=== PATIENT | female | born 1965 | race Caucasian/White ===

== ENCOUNTER 2022-04-09 20:58 | Observation (INO) ==
[2022-04-09] MEDS ORDERED: Lactated Ringers 1000 ml BAG 1,000 ML IV ONE ×2 (21:29→23:36)
[2022-04-09 22:32] LABS: ABS Lymphocytes 1.2 10^3/ul (1.0-4.8); ABS Monocytes 0.7 10^3/ul (0-0.8); ABS Neutrophils 9.4 10^3/ul (1.5-7.7); Eosinophil % 0.3 %; Hematocrit 39 % (35-47); Lymphocyte % 10.4 %; Mean Corpuscular HGB Conc 33 g/dL (31-36); Mean Corpuscular Hemoglobin 30 pg (27-31); Mean Corpuscular Volume 90 fL (80-97); Mean Platelet Volume 8.1 fL (7.4-10.4); Platelet Count 218 10^3/uL (150-450); Red Blood Count 4.35 10^6 /uL (3.70-4.87); Red Cell Distribution Width 12 % (10-15); White Blood Count 11.3 10^3/uL (3.5-10.8)
[2022-04-09 22:37] LABS: INR 1.14 (0.88-1.18)
[2022-04-09 22:44] LABS: High Sens Troponin Baseline < 3 pg/mL (<15)
[2022-04-09 22:58] LABS: ALT 13 U/L (7-52); Albumin 4.5 g/dL (3.2-5.2); Albumin/Globulin Ratio 1.8 (1-3); Alkaline Phosphatase 60 U/L (35-149); Blood Urea Nitrogen 17 mg/dL (6-24); CO2 Carbon Dioxide 24 mmol/L (22-32); Calcium 9.2 mg/dL (8.6-10.3); Chloride 102 mmol/L (101-111); Globulin 2.5 g/dL (2-4); Glucose 150 mg/dL (70-100); Sodium 136 mmol/L (135-145); eGFR CKD-EPI 101.9 (>60)
[2022-04-09 23:03] LABS: Anion Gap 10 mmol/L (2-11)
[2022-04-09 23:56] LABS: High Sensitivity Troponin 1 Hr < 3 pg/mL (<15)
[2022-04-10] MEDS: KCL 20 MEQ/100 ML IVPREMIX 20 MEQ/100 ML BAG IV SCH ×3 (02:34→09:21)
[2022-04-10] MEDS: Potassium Chlor 20 meq TAB.ER PO SCH ×2 (05:36→06:54)
[2022-04-10 05:55] LABS: ABS Lymphocytes 1.5 10^3/ul (1.0-4.8); ABS Monocytes 0.4 10^3/ul (0-0.8); ABS Neutrophils 3.6 10^3/ul (1.5-7.7); Eosinophil % 0.7 %; Hematocrit 36 % (35-47); Lymphocyte % 27.3 %; Mean Corpuscular HGB Conc 33 g/dL (31-36); Mean Corpuscular Hemoglobin 30 pg (27-31); Mean Corpuscular Volume 91 fL (80-97); Mean Platelet Volume 8.6 fL (7.4-10.4); Platelet Count 220 10^3/uL (150-450); Red Blood Count 3.97 10^6 /uL (3.70-4.87); Red Cell Distribution Width 12 % (10-15); White Blood Count 5.6 10^3/uL (3.5-10.8)
[2022-04-10 06:40] LABS: Blood Urea Nitrogen 11 mg/dL (6-24); CO2 Carbon Dioxide 26 mmol/L (22-32); Calcium 8.4 mg/dL (8.6-10.3); Chloride 108 mmol/L (101-111); Glucose 86 mg/dL (70-100); Sodium 143 mmol/L (135-145); eGFR CKD-EPI 108.3 (>60)
[2022-04-10 06:49] LABS: Anion Gap 9 mmol/L (2-11)
[2022-04-10 06:54] LABS: TSH Ultra Thyroid Stim Horm 1.06 mcIU/mL (0.34-5.60)
[2022-04-10 06:56] LABS: Free T4 0.97 ng/dL (0.61-1.12)
[2022-04-10 09:01] LABS: Magnesium 1.8 mg/dL (1.9-2.7); Potassium Redraw 4.6 mmol/L (3.5-5.0)
[2022-04-10] MEDS ORDERED: Magnesium Sulfate 2 gm BAG 2 GM/50 ML BAG IVPB ONE (09:10)
[2022-04-10 21:12] LABS: High Sensitivity Troponin 1 Hr < 3 pg/mL (<15)
[2022-04-10 22:51] LABS: High Sensitivity Troponin 3 Hr < 3 pg/mL (<15)
[2022-04-11 06:44] LABS: ABS Eosinophils 0.1 10^3/ul (0-0.6); ABS Lymphocytes 2.1 10^3/ul (1.0-4.8); ABS Monocytes 0.5 10^3/ul (0-0.8); ABS Neutrophils 2.9 10^3/ul (1.5-7.7); Eosinophil % 1.9 %; Hematocrit 40 % (35-47); Hemoglobin 13.6 g/dL (12.0-16.0); Lymphocyte % 36.9 %; Mean Corpuscular HGB Conc 34 g/dL (31-36); Mean Corpuscular Hemoglobin 30 pg (27-31); Mean Corpuscular Volume 90 fL (80-97); Platelet Count 205 10^3/uL (150-450); Red Blood Count 4.47 10^6 /uL (3.70-4.87); Red Cell Distribution Width 12 % (10-15); White Blood Count 5.6 10^3/uL (3.5-10.8)
[2022-04-11 07:37] LABS: Calcium 9.1 mg/dL (8.6-10.3); Potassium 4.2 mmol/L (3.5-5.0); eGFR CKD-EPI 101.5 (>60)
[2022-04-11 12:00] VITALS: BP 125/72
== END 2022-04-11 13:40 | disposition home or self-care (01) ==
LOC: ED 20:58 → EDHOLD 20:58 → SUATTDRO 23:45 → EDHOLD 04-10 07:51 → MEDTELE 04-10 07:57
PROVIDERS: ADMIT Internal Medicine; ATTEND Internal Medicine